=== PATIENT | female | born 1970 | race Caucasian/White ===

== ENCOUNTER 2021-01-15 09:43 | Day surgery (SDC) | payer MEDICARE ==
[~2021-01-15] VITALS: Ht 167.6 cm; Wt 95.6 kg
[2021-01-15] MEDS ORDERED: LIPITOR 10MG10 MG PO (10:31)
[2021-01-15] MEDS ORDERED: TRULICITY1.5 MG/0.5 SQ (11:55)
[2021-01-15] MEDS ORDERED: TOUJEO300 U/ML SQ (11:59)
[2021-01-15] MEDS ORDERED: FENTANYL 25 MCG TD (12:00)
[2021-01-15] MEDS ORDERED: DAZIDOX10 MG PO (12:00)
[2021-01-15] MEDS ORDERED: TENORMIN 2525 MG/TAB PO (12:01)
[2021-01-15] MEDS ORDERED: LIORESAL20 MG PO (12:02)
[2021-01-15] MEDS ORDERED: DIABETA 5MG5 MG/TAB PO (12:02)
[2021-01-15] MEDS ORDERED: ATIVAN 0.50.5 MG/TAB PO (12:03)
[2021-01-15] MEDS ORDERED: ESTRACE 1MG1 MG/TAB PO (12:04)
[2021-01-15] MEDS ORDERED: SYNTHROID0.1 MG/TAB PO (12:04)
[2021-01-15] MEDS ORDERED: GLUCOPHAGE500 MG/TAB PO (12:05)
[2021-01-15] MEDS ORDERED: PROTONIX20 MG PO (12:05)
[2021-01-15] MEDS ORDERED: ELAVIL100 MG PO (12:06)
[2021-01-15] MEDS ORDERED: VISTARIL 2525 MG/CAP PO (12:06)
[2021-01-15] MEDS ORDERED: ZILRETTA32 MG TP (12:08)
[2021-01-15] MEDS ORDERED: VOLTAREN GEL 1%1 TU TP (12:08)
[2021-01-15] MEDS ORDERED: ZOFRAN 4MG T4 MG/TAB PO (12:09)
[2021-01-15 12:15] VITALS: BP 129/79; PULSE 76; TEMP 97.3
--- NOTE | 2021-01-15 12:15 | NUR ---
1215 Pt returns from Endo procedure via cart. Pt ambulates with RN assist from cart to recliner. Pt states back pain is very strong. Pt states that this is what happens when she has anesthesia and lays either on her back or on her left side. Pt requests warm blanket for back and states this is what seems to help most at home. Pt stretching and standing to help alleviate pain. Due to pt's nausea and vomiting and not being able to keep food down, she requests no food or drink at this time but to wait until she gets home. Report received from SALVATORE Montes. Call light within reach. Monitors on and alarms set. All vital signs are stable. 1230 Pt's pain continues to persist but decrease slightly. Pt states it will just take time to be relieved, and requests going home to rest it off with a heating pad. Pt has no other complaints. 1250 Discharge instructions given to pt. Handed to her are a thank you card, all discharge information, and procedural photos. 1305 Pt transferred out of hospital via wheelchair and this RN to private vehicle driven by .
[2021-01-15 12:30] VITALS: BP 136/76; PULSE 78
[2021-01-15 12:45] VITALS: BP 128/93; PULSE 72
[2021-01-15 13:37] VITALS: BP 158/82; PULSE 72; TEMP 97.5
== END 2021-01-15 13:05 | disposition home or self-care (01) ==
LOC: SDCO 09:43
DX: Z12.11 Encounter for screening for malignant neoplasm of colon (principal); K21.00 Gastro-esophageal reflux disease with esophagitis, without bleeding; K63.5 Polyp of colon; D12.5 Benign neoplasm of sigmoid colon; K62.1 Rectal polyp; K29.70 Gastritis, unspecified, without bleeding; K57.10 Diverticulosis of small intestine without perforation or abscess without bleeding; K62.89 Other specified diseases of anus and rectum; K60.2 Anal fissure, unspecified; K22.70 Barrett's esophagus without dysplasia; K59.03 Drug induced constipation; E13.8 Other specified diabetes mellitus with unspecified complications; K64.0 First degree hemorrhoids; I25.10 Atherosclerotic heart disease of native coronary artery without angina pectoris; G89.4 Chronic pain syndrome; F32.9 Major depressive disorder, single episode, unspecified; F41.9 Anxiety disorder, unspecified; Z20.822 Contact with and (suspected) exposure to COVID-19; Z79.82 Long term (current) use of aspirin; Z79.4 Long term (current) use of insulin; Z79.890 Hormone replacement therapy; Z79.891 Long term (current) use of opiate analgesic; Z88.0 Allergy status to penicillin; Z88.2 Allergy status to sulfonamides; Z91.048 Other nonmedicinal substance allergy status
CPT/HCPCS: J0360; J2704; J3010; J7030